=== PATIENT | male | born 1990 | race African-American/Black ===

== ENCOUNTER 2017-02-02 10:18 | Emergency (ER) | payer OTHER, SELFPAY ==
[~2017-02-02] VITALS: Ht 175.3 cm; Wt 77.3 kg
[~2017-02-02 10:18] MED LIST: NOCURR
[2017-02-02] MEDS ORDERED: ETHYL CHLORIDE 103.5 ML SPRAY TP ONE (10:45)
[2017-02-02] MEDS ORDERED: HYDROCODONE/ACETAMINOPHEN 5-325 MG TABLET PO ONE (11:00)
[2017-02-02] MEDS ORDERED: POVIDONE-IODINE 10% 15 ML SOLUTION UD TP ONE (11:15)
[2017-02-02] MEDS ORDERED: LIDOCAINE HCL 1% 10 ML VIAL INJ ONE (11:15)
[2017-02-02 12:32] VITALS: BP 126/76
== END 2017-02-02 12:42 | disposition home or self-care (01) ==
LOC: EMS 10:21
DX: L02.411 Cutaneous abscess of right axilla (principal)
CPT/HCPCS: 10060; 99283; J3490

== ENCOUNTER 2017-02-04 09:36 | Emergency (ER) | payer OTHER ==
[~2017-02-04] VITALS: Ht 167.6 cm; Wt 68.0 kg
[2017-02-04] MEDS ORDERED: PAIN PILL PO (09:39)
[2017-02-04] MEDS ORDERED: ANTIBIOTIC PO (09:39)
[2017-02-04] MEDS ORDERED: OxyCODONE HCL/ACETAMINOPHEN 5-325 MG TABLET PO ONE (10:15)
[2017-02-04 10:33] VITALS: BP 130/69
== END 2017-02-04 10:56 | disposition home or self-care (01) ==
LOC: EMS 09:37
DX: Z48.01 Encounter for change or removal of surgical wound dressing (principal)
CPT/HCPCS: 99283

== ENCOUNTER 2017-05-02 19:06 | Emergency (ER) | payer OTHER ==
[~2017-05-02] VITALS: Ht 170.2 cm; Wt 75.5 kg
[~2017-05-02 19:06] MED LIST changes: +ANTIBIOTIC PO; +PAIN PILL PO
[2017-05-02] MEDS ORDERED: MIRT30 PO (19:25)
[2017-05-02 22:15] LABS: BASOPHILS % (AUTO) 0.4 % (0.0-2.0); EOSINOPHILS % (AUTO) 1.8 % (1.0-6.0); HEMATOCRIT 43.1 % (41-53); HEMOGLOBIN 14.6 g/dL (13.5-17.5); LYMPHOCYTES # (AUTO) 1.2 K/uL (1.0-4.8); LYMPHOCYTES % (AUTO) 18.9 % (22.0-44.0); MEAN CORPUSCULAR HGB CONC 33.9 G/dL (31.0-37.0); MEAN CORPUSCULAR VOLUME 97 fL (80-100); MONOCYTES # (AUTO) 0.7 K/uL (0.1-1.0); MONOCYTES % (AUTO) 10.7 % (2.0-9.0); NEUTROPHILS # (AUTO) 4.5 K/uL (1.8-7.7); NEUTROPHILS % (AUTO) 68.2 % (40.0-70.0); PLATELET COUNT (AUTO) 237 K/uL (150-450); RED BLOOD CELL COUNT(AUTO) 4.43 MIL/uL (4.50-5.90); RED CELL DISTRIBUTION WIDTH 13.4 % (11.5-14.5); WHITE BLOOD COUNT (AUTO) 6.5 K/uL (4.5-11.0)
[2017-05-02 22:19] LABS: ANION GAP 9 mmol/L (8-16); CALCIUM, TOTAL 8.6 mg/dL (8.8-10.5); CARBON DIOXIDE 30 mmol/L (22-29); CHLORIDE 106 mmol/L (98-107); CREATININE 1.07 mg/dL (0.60-1.30); GLOMERULAR FILTR. RATE CALC > 60 mL/min (>60); POTASSIUM 3.3 mmol/L (3.5-5.1); SODIUM SERUM 145 mmol/L (136-145); UREA NITROGEN, BLOOD 12 mg/dL (7-18)
[2017-05-02 22:25] LABS: ALANINE AMINOTRANSFERASE 37 U/L (12-78); ALBUMIN 3.5 g/dL (3.4-5.0); ASPARTATE AMINOTRANSFERASE 21 U/L (15-37); BILIRUBIN,TOTAL 0.3 mg/dL (0.1-1.0); TOTAL PROTEIN, SERUM 5.9 g/dL (6.4-8.2)
[2017-05-02 22:29] VITALS: BP 124/63
[2017-05-02 23:01] LABS: RBC MORPHOLOGY COMMENT NORMAL RBC MORPH
== END 2017-05-02 22:54 | disposition home or self-care (01) ==
LOC: EMS 19:07
DX: Z02.89 Encounter for other administrative examinations (principal)
CPT/HCPCS: 36415; 80053; 80307; 85025; 99284; G0480